=== PATIENT | male | born 1975 | race African-American/Black ===

== ENCOUNTER 2023-02-03 13:32 | Emergency (ER) | payer SELFPAY ==
[~2023-02-03] VITALS: Ht 188 cm; Wt 98.0 kg
[2023-02-03 14:30] VITALS: BP 147/99; PULSE 94; RESP 18; TEMP 98.1; O2SAT 98
[2023-02-03] MEDS ORDERED: CIPR1SUS8 OT (14:47)
== END 2023-02-03 15:44 | disposition home or self-care (01) ==
LOC: ER 13:32
DX: S00.412A Abrasion of left ear, initial encounter (principal); H72.92 Unspecified perforation of tympanic membrane, left ear; F17.210 Nicotine dependence, cigarettes, uncomplicated; I10 Essential (primary) hypertension; X58.XXXA Exposure to other specified factors, initial encounter; Y93.89 Activity, other specified; Y92.89 Other specified places as the place of occurrence of the external cause; Y99.8 Other external cause status